=== PATIENT | male | born 1990 | race Two or more races ===

== ENCOUNTER 2018-03-15 13:42 | Emergency (ER) | payer OTHER ==
[~2018-03-15] VITALS: Ht 177.8 cm; Wt 117.0 kg
[2018-03-15 13:45] VITALS: BP 135/94
== END 2018-03-15 14:56 | disposition home or self-care (01) ==
LOC: ED 14:50
DX: R13.14 Dysphagia, pharyngoesophageal phase (principal)
CPT/HCPCS: 70360; 99284

== ENCOUNTER 2018-04-17 15:36 | Emergency (ER) | payer OTHER ==
[~2018-04-17] VITALS: Ht 177.8 cm; Wt 110.2 kg
[2018-04-17 15:38] VITALS: BP 135/88
== END 2018-04-17 16:50 | disposition home or self-care (01) ==
LOC: ED 16:40
DX: K21.9 Gastro-esophageal reflux disease without esophagitis (principal)
CPT/HCPCS: 93005; 99283

== ENCOUNTER → 2018-10-01 | Outpatient (CLI) | payer OTHER | END | disposition home or self-care (01) | LOC: CVU 08:11 | PROVIDERS: ATTEND Internal Medicine Cardiovascular Disease | DX: I48.91 Unspecified atrial fibrillation (principal) | CPT/HCPCS: 93306 ==

== ENCOUNTER 2018-10-08 21:28 | Emergency (ER) | payer OTHER ==
[~2018-10-08] VITALS: Ht 177.8 cm; Wt 111.4 kg
[2018-10-08] MEDS ORDERED: FAMOTIDINE 20 MG TABLET PO ONE (22:00)
[2018-10-08] MEDS ORDERED: ONDANSETRON ODT 4 MG PO ONE (22:00)
[2018-10-08 22:01] LABS: BASOPHILS # (AUTO) 0.02 x10^3/uL (0-0.1); BASOPHILS % (AUTO) 0 % (0-1); EOSINOPHILS # (AUTO) 0.02 x10^3/uL (0-0.4); EOSINOPHILS % (AUTO) 0 % (1-7); LYMPHOCYTES # (AUTO) 2.52 x10^3/uL (1-3.4); LYMPHOCYTES % (AUTO) 34 % (22-44); MD NO; MEAN CORPUSCULAR HEMOGLOBIN 28.7 pg (27.5-34.5); MEAN CORPUSCULAR HGB CONC 34.1 g/dL (33.2-36.2); MEAN CORPUSCULAR VOLUME 84.1 fL (81-97); MEAN PLATELET VOLUME 7.2 fL (7.4-10.4); MONOCYTES # (AUTO) 0.79 x10^3/uL (0.2-0.8); MONOCYTES % (AUTO) 11 % (2-9); NEUTROPHILS # (AUTO) 4.16 x10^3/uL (1.8-6.8); NEUTROPHILS % (AUTO) 55 % (42-75); PLATELET COUNT 253 x10^3/uL (130-400); RED BLOOD COUNT 5.29 x10^6/uL (4.38-5.82); RED CELL DISTRIBUTION WIDTH 12.4 % (9.4-14.8)
--- NOTE | 2018-10-08 22:10 | NUR ---
PT BACK FROM IMAGING. PT PLACED IN GOWN, URINE COLLECTED/SENT TO LAB. REPORT TO KWAME KRAMER, TRANSFER OF CARE AT THIS TIME.
[2018-10-08 22:12] LABS: ALANINE AMINOTRANSFERASE 66 U/L (12-78); ALBUMIN 3.4 g/dL (3.4-5.0); ANION GAP 7 mmol/L (5-15); CALCIUM 8.6 mg/dL (8.5-10.1); CHLORIDE 105 mmol/L (98-107); CREATININE 1.01 mg/dL (0.7-1.3)
[2018-10-08 22:14] LABS: ALKALINE PHOSPHATASE 53 U/L (45-117); BILIRUBIN,TOTAL 0.7 mg/dL (0.2-1.0); TOTAL PROTEIN 7.7 g/dL (6.4-8.2)
[2018-10-08 22:21] LABS: MICROSCOPIC INDICATED
[2018-10-08] MEDS ORDERED: FAMOTIDINE 20 MG TABLET ONE (22:24)
[2018-10-08] MEDS ORDERED: ONDANSETRON ODT 4 MG ONE (22:25)
[2018-10-08 22:30] LABS: CULTURE INDICATED? NO
[2018-10-08] MEDS ORDERED: PROMETHAZINE 25 MG/ML, 1ML ONE (23:25)
[2018-10-08] MEDS ORDERED: PROMETHAZINE 25 MG/ML, 1ML IM ONE (23:30)
[2018-10-08 23:32] VITALS: BP 127/84
== END 2018-10-08 23:33 | disposition home or self-care (01) ==
LOC: ED 22:25
DX: K59.00 Constipation, unspecified (principal); K21.9 Gastro-esophageal reflux disease without esophagitis
CPT/HCPCS: 36415; 74022; 80053; 81001; 83690; 85025; 86677; 96372; 99284; J2550; Q0162